=== PATIENT | female | born 1960 | race African-American/Black ===

== ENCOUNTER 2021-10-17 07:48 | Day surgery (SDC) | payer BC ==
[2021-10-16 11:09] VITALS: BMI 29.0
[2021-10-17 10:10] VITALS: BP 120/78; PULSE 80; TEMP 98
== END 2021-10-17 10:34 | disposition home or self-care (01) ==
LOC: EDBD → FASU-ENDO 07:48
PROVIDERS: ATTEND Internal Medicine Gastroenterology
PROC: 0DJD8ZZ Inspection of Lower Intestinal Tract, Via Natural or Artificial Opening Endoscopic (ICD-10-PCS; principal; 2021-10-17 09:33)
DX: Z86.010 Personal history of colon polyps (principal); K57.30 Diverticulosis of large intestine without perforation or abscess without bleeding